=== PATIENT | male | born 1955 | race Caucasian/White ===

== ENCOUNTER → 2018-06-20 | Outpatient (CLI) | payer OTHER ==
[~2018-06-20] MED LIST: ACET-1138 PO; ACET-1256 PO; ASCA500 PO; ASCO10003 PO; ASPCH81X PO; ASPEC325 PO; CHOL100010 PO; IBUP-103 PO; KETO10TA PO; MULT-506 PO; NAPR1TAB9 PO; OMEG10007 PO; OXYC-57 PO; RXC5 PO; VITA100C4 PO; VITACAP37 PO
--- NOTE | 2018-06-20 17:15 | DIAGNOSTIC IMAGING REPORT ---
MRI OF THE RIGHT ELBOW WITHOUT IV CONTRAST CLINICAL HISTORY: Right elbow injury. Biceps tendon rupture. COMPARISON STUDY: No priors. TECHNIQUE: MRI of the right elbow is performed utilizing various T1 and T2 sequences in the axial, sagittal, and coronal planes. IV contrast was not administered for this examination. Note that interpretation is suboptimal without plain film correlate. The examination is modestly degraded by motion artifact. FINDINGS: Normal marrow signal intensity is preserved throughout the visualized bony structures. There is no MRI evidence of fracture. Significant bony overgrowth is seen along the lateral humeral epicondyle. There is marked thickening and abnormal signal identified within the biceps tendon. There is full-thickness rupture of the long head of the biceps tendon at its insertion with at least 2.5 cm of musculotendinous retraction. There is surrounding soft tissue edema and fluid. The triceps tendon at its insertion appears intact. There is no elbow joint effusion. There is significant subcutaneous soft tissue edema seen anteriorly and along the medial aspect of the elbow. The radial collateral ligament is not visualized and likely ruptured. The ulnar collateral ligament is intact as imaged. There is tendinopathy with high-grade tearing of the common extensor tendon. A few fibers likely remain intact. There is also partial thickness tearing of the common flexor tendon. The majority of these fibers are maintained. There is nearly full-thickness cartilaginous thinning identified along the capitellum. The trochlear cartilage appears preserved. IMPRESSION: 1. There is tendinopathy with full-thickness rupture at the insertion of the biceps tendon with approximately 2.5 cm of musculotendinous retraction. 2. There is age indeterminant and possibly chronic rupture of the radial collateral alignment. 3. There is tendinopathy with high-grade partial thickness tearing of the common extensor tendon. A few fibers likely remain intact. 4. There is mild or partial thickness tearing seen involving the common flexor tendon. 5. Bulky bony overgrowth is seen along the lateral humeral epicondyle. Dictated: 06/20/2018 4:07 PM Transcribed: 06/20/2018 5:15 PM [email or web address] Electronically signed by: Raúl Quintana M.D. 06/20/2018 5:53 PM Dictated Date/Time: 06/20/2018 4:07 PM
== END | disposition home or self-care (01) ==
LOC: C.MRIBC 14:54
PROVIDERS: ATTEND Orthopaedic Surgery
DX: S46.211A Strain of muscle, fascia and tendon of other parts of biceps, right arm, initial encounter (principal); X58.XXXA Exposure to other specified factors, initial encounter; M25.521 Pain in right elbow

== ENCOUNTER → 2018-06-24 | Outpatient (CLI) | payer OTHER ==
[2018-06-24 15:43] LABS: BASO % 0.3 %; BASO ABS # 0.02 K/uL (0-0.2); EOS ABS # 0.12 K/uL (0-0.5); HEMATOCRIT 40.8 % (42-52); IG# 0.01 K/uL (0.00-0.02); LYMPH % 30.1 %; LYMPH ABS # 1.78 K/uL (1.2-3.4); MEAN CELL VOLUME 91.9 fL (80-100); MEAN CORPUSCULAR HEMOGLOBIN 31.5 pg (25-34); MEAN CORPUSCULAR HGB CONC 34.3 g/dl (32-36); MEAN PLATELET VOLUME 10.2 fL (7.4-10.4); MONO % 9.6 %; MONO ABS # 0.57 K/uL (0.11-0.59); NEUT % 57.8 %; NEUT ABS # 3.41 K/uL (1.4-6.5); PLATELET COUNT 218 K/uL (130-400); RED CELL DISTRIBUTION WIDTH CV 12.8 % (11.5-14.5); RED CELL DISTRIBUTION WIDTH SD 42.9 fL (36.4-46.3); WHITE BLOOD COUNT 5.91 K/uL (4.8-10.8)
[2018-06-24 16:15] LABS: BLOOD UREA NITROGEN 18 mg/dl (7-18); CALCIUM 8.9 mg/dl (8.5-10.1); CARBON DIOXIDE 27 mmol/L (21-32); CREATININE 0.99 mg/dl (0.60-1.40); GLUCOSE 76 mg/dl (70-99); POTASSIUM 3.7 mmol/L (3.5-5.1); SODIUM 137 mmol/L (136-145)
== END | disposition home or self-care (01) ==
LOC: C.CPL 14:07
PROVIDERS: ATTEND Orthopaedic Surgery
DX: R22.30 Localized swelling, mass and lump, unspecified upper limb (principal)

== ENCOUNTER → 2018-06-27 | Day surgery (SDC) | payer OTHER ==
[2018-06-25 09:51] VITALS: Ht 175.3 cm; Wt 90.5 kg
[~2018-06-27] VITALS: Ht 175.3 cm; Wt 90.5 kg
[~2018-06-27] MED LIST changes: -ACET-1138 PO; -ACET-1256 PO; -ASCA500 PO; -ASPEC325 PO; +ATROPINE SULFATE 0.1 MG/ML 5ML SYR IV PRN; +BUPIVACAINE 0.25% 30 ML VIAL ONE; +CEFAZOLIN 2000MG IV PUSH 15 ML IV SCH; +DEXAMETHASONE SOD INJ 4 MG/ML VIAL ONE; +EpHEDrine SULFATE INJ 50 MG/ML AMP IV PRN; +EpINEphrine INJ 1MG/ML AMP 1 MG/ML AMP ONE; +FENTANYL CITRATE INJ 50 MCG/1 ML 2 ML VIAL ONE; +HYDROmorphone INJ 0.5 MG/0.5 ML SYR ONE; -IBUP-103 PO; +KETOROLAC TROMETHAMINE 30 MG/ML VIAL IV. PRN; +KETOROLAC TROMETHAMINE 30 MG/ML VIAL ONE; +LACTATED RINGER'S 1000ML 1,000 ML IV SCH; +LIDOCAINE HCL 2% 2 ML VIAL (20MG/ML) ONE; +MIDAZOLAM HCL 1 MG/ML 2ML VIAL ONE; -NAPR1TAB9 PO; +NURSING VERBAL MED ORDER ONE; -OMEG10007 PO; +ONDANSETRON INJ 2 MG/ML 2 ML VIAL IV PRN; +ONDANSETRON INJ 2 MG/ML 2 ML VIAL ONE; +OXYCODONE/ACETAMINOPHEN 5-325 TAB PO PRN; +PROPOFOL IV EMULSION 10 MG/ML 20 ML VIAL ONE; +ROPIVACAINE 0.5% 5 MG/ML 30 ML VIAL ONE; -RXC5 PO; +SODIUM CHLORIDE 0.9% 1000ML 1,000 ML IV SCH; -VITA100C4 PO
--- NOTE | 2018-06-27 06:45 | History & Physical Bridge Note ---
H&P Re-Evaluation Bridge Note: I have examined the patient, reviewed the History & Physical and in the interval since the performance of the History & Physical I have noted the following changes of clinical significance: No changes noted
--- NOTE | 2018-06-27 08:01 | [facility] Post Operative Brief Note ---
Immediate Operative Summary Operative Date Jun 27, 2018. Pre-Operative Diagnosis RIGHT DISTAL BICEPS TENDON RUPTURE Post-Operative Diagnosis SAME PREOP Procedure(s) Performed Right Distal Biceps Tendon Repair Surgeon DR. Reema ROCHE Management Coordinator Surgeon(s) CASSIA BANDA PA-C Estimated Blood Loss 5 ML Findings Consistent with Post-Op Diagnosis Specimens NONE Anesthesia Type General
--- NOTE | 2018-06-27 08:21 | Discharge Instructions-SurgCtr ---
Discharge Instructions Date of Service Jun 27, 2018. Visit Reason for Visit: Disorder Of Elbow Discharge Discharge Diagnosis / Problem: SAME ABOVE Discharge Goals Goal(s): Decrease discomfort, Improve function Activity Recommendations Activity Limitations: as noted below Lifting Limitations: until after follow-up appointment Exercise/Sports Limitations: until after follow-up appointment Shower/Bathe: tomorrow Anesthesia . Post Anesthesia Instructions: If you have had General Anesthesia or IV Sedation: * Do not drive today. * Resume driving when surgeon permits. * Do not make important decisions or sign legal documents today. * Call surgeon for: 1. Temperature elevations greater than 101 degrees F. 2. Uncontrollable pain. 3. Excessive bleeding. 4. Persistent nausea and vomiting. 5. Medication intolerance (nausea, vomiting or rash). * For nausea and vomiting use only clear liquids such as: tea, soda, bouillon until nausea subsides, then gradually increase diet as tolerated. * If you have any concerns or questions, call your surgeon's office. If physician is unavailable and it is an emergency, call 911 or go to the nearest emergency room. . Instructions / Follow-Up Instructions / Follow-Up MEDICATIONS: * Resume previous medications unless instructed otherwise by your surgeon. * Always take pain medication on a full stomach or with food to avoid upset stomach. * Do not drink alcohol or drive while taking narcotics. * Ibuprofen or Tylenol may be taken if narcotic not needed. SPECIAL CARE INSTRUCTIONS: __ None _X_ Keep extremity elevated and iced x 48 hours; apply ice 20-30 minutes 8-10 times/day. May remove at night. _X_ Sling (MAY REMOVE AFTER 48 HOURS ONLY TO SHOWER) _X_24 hrs/day __ Remove at night _X_ Shoulder Immobilizer __ 24 hrs/day __ Remove at night _X_ Dressing __ Maintain until seen in office, may shower with plastic over site _X_ Remove dressings in 48 hours and then may shower _X_ Cover incisions with band-aids after showering __ Do not remove steri-strips Call physician if chills or temperature rises above 102 degrees or pain unrelieved by prescribed pain medications at . . Diet Recommendations Home Diet: no limitations Fluid Restriction: None Procedures Procedures Performed: Right Distal Biceps Tendon Repair Pending Studies Studies pending at discharge: no Work Instructions Return To Work: after follow-up Lifting Limitations: NO LIFTING WITH RIGHT ARM Medical Emergencies . Who to Call and When: Medical Emergencies: If at any time you feel your situation is an emergency, please call 911 immediately. . Non-Emergent Contact Non-Emergency issues call your: Surgeon Call Non-Emergent contact if: your pain is not controlled, wound has increased drainage, wound has increased redness . . "Provider Documentation" section prepared by Mg Matamoros. .
[2018-06-27] MEDS: FENTANYL CITRATE INJ 50 MCG/1 ML 2 ML VIAL IV PRN ×4 (08:31→08:50)
--- NOTE | 2018-06-27 09:44 | Anesthesia Progress Nt - [facility] ---
Anesthesia Post Op Note Date & Time Jun 27, 2018 at 09:43 Vital Signs Pain Intensity: 3 Vital Signs Past 12 Hours Date Time Temp Pulse Resp B/P (MAP) Pulse Ox O2 Delivery O2 Flow Rate FiO2 06/27/18 09:36 36.4 67 12 157/101 98 Room Air 06/27/18 09:34 73 16 06/27/18 09:34 72 16 96 06/27/18 09:31 165/101 06/27/18 09:29 80 13 99 06/27/18 09:29 79 13 06/27/18 09:26 185/112 06/27/18 09:24 77 9 06/27/18 09:24 76 9 96 06/27/18 09:21 174/119 06/27/18 09:19 81 11 06/27/18 09:19 81 11 06/27/18 09:16 167/105 06/27/18 09:14 78 14 06/27/18 09:14 76 14 100 06/27/18 09:11 169/116 06/27/18 09:09 83 17 100 06/27/18 09:09 83 17 06/27/18 09:06 170/124 06/27/18 09:04 73 12 06/27/18 09:04 71 12 100 06/27/18 09:02 175/108 06/27/18 08:59 82 14 100 06/27/18 08:59 82 14 06/27/18 08:56 174/116 06/27/18 08:54 80 18 91 06/27/18 08:54 81 18 06/27/18 08:51 170/111 06/27/18 08:49 82 14 06/27/18 08:49 81 14 96 06/27/18 08:46 167/106 06/27/18 08:44 83 13 97 06/27/18 08:44 83 13 06/27/18 08:41 161/109 06/27/18 08:39 78 12 97 06/27/18 08:39 78 12 06/27/18 08:36 159/103 06/27/18 08:34 81 10 06/27/18 08:34 79 10 153/97 98 06/27/18 08:29 78 14 06/27/18 08:29 79 14 100 06/27/18 08:26 162/99 06/27/18 08:24 78 12 06/27/18 08:24 77 12 98 06/27/18 08:21 145/94 06/27/18 08:20 145/90 06/27/18 08:19 36.0 75 12 145/90 96 Mask 6 06/27/18 06:14 36.6 68 16 147/95 (112) 98 Room Air Notes Mental Status: alert / awake / arousable, participated in evaluation Pt Amnestic to Procedure: Yes Nausea / Vomiting: adequately controlled Pain: adequately controlled Airway Patency, RR, SpO2: stable & adequate BP & HR: stable & adequate Hydration State: stable & adequate Anesthetic Complications: no major complications apparent
[2018-06-27 09:52] VITALS: TEMP 36.5
[2018-06-27 10:25] VITALS: BP 148/91; PULSE 70; O2SAT 98
--- NOTE | 2018-06-27 11:36 | OPERATIVE REPORT ---
DATE OF OPERATION: 06/27/2018 PREOPERATIVE DIAGNOSIS: Acute right distal biceps tendon rupture. POSTOPERATIVE DIAGNOSIS: Acute right distal biceps tendon rupture. PROCEDURE: Open right distal biceps tenodesis. SURGEON: Dr. Sameer Gilbert. HIGH SCHOOL COMPUTER SCIENCE TEACHER: Mg Matamoros PA-C, whose assistance was necessary for retraction and closure. ANESTHESIA: General. COMPLICATIONS: None. CONDITION: Stable to PACU. INDICATIONS: Abilio is a pleasant 62-year-old male who sustained an injury to his right elbow about 2 weeks ago. MRI and clinical examination were diagnostic for acute right distal biceps tendon rupture. After failing conservative treatment, he elected to undergo a tenodesis. DESCRIPTION OF PROCEDURE: On 06/27/2018, he arrived at [facility] for the above procedure. He was seen in the preoperative holding area and the operative extremity was identified and signed. He was given a preoperative antibiotic, taken back to the operating room, laid on the table in supine position and put under general anesthesia. The right elbow was then prepped and draped in sterile fashion. Time-out was done. The patient's operative extremity was properly identified. A Víctor approach was used. Dissection was taken down between the flexor pronator mass in the brachioradialis. A single vein was tied off and ligated because it crosses the center of the surgical field. The remainder of the neurovascular structures were mostly retracted ulnarly. The radial tuberosity was identified and cleared. The distal biceps tendon was then dissected out of the wound and pulled out of the wounds. The tendon was then whipstitched with an Arthrex FiberLoop. After it was whipstitched, it measured to be a 7 mm. An Arthrex biceps button was placed on the tails of the FiberWire sutures. A biceps pin was placed from the radial tuberosity out the posterior cortex of the radius. An 8 mm drill bit was used to drill an 8 mm hole in the radial tuberosity. The Arthrex biceps button was then passed through the 8 mm hole and out the posterior cortex. The button was then flipped and a tension slide technique was used to deliver the tendon into the 8 mm hole. A 7 x 10 mm biointerference screw was then placed on the radial aspect and to push the tendon ulnarly. This gave excellent fixation. The tails of the FiberWire were tied around the screw and cut. The elbow was brought through a full range of motion. The biceps appeared to be under good tension and everything was stable. The tourniquet was deflated. Hemostasis was obtained. The wound was then irrigated. Surrounding soft tissues were injected with Marcaine with epinephrine. Skin was then closed with 3-0 Vicryl and a 3-0 nylon suture. He was then placed in a soft compressive dressing, extubated, transferred to a [facility] and taken to the postanesthesia care unit in stable condition and tolerated the procedure well. I attest to the content of the Intraoperative Record and any orders documented therein. Any exception s are noted below.
== END | disposition home or self-care (01) ==
LOC: X.SURG 06:05
PROVIDERS: ATTEND Orthopaedic Surgery
DX: S46.201A Unspecified injury of muscle, fascia and tendon of other parts of biceps, right arm, initial encounter (principal); X58.XXXA Exposure to other specified factors, initial encounter; Z79.82 Long term (current) use of aspirin